=== PATIENT | female | born 1980 | race African-American/Black ===

== ENCOUNTER 2020-05-02 17:21 | Emergency (ER) | payer BC, OTHER ==
[2020-05-02 17:48] LABS: BACTERIA,URINE MODERTE /HPF; BILIRUBIN,URINE NEGATIVE (NEGATIVE); CLARITY,URINE CLEAR; COLOR,URINE YELLOW; GLUCOSE, URINE (UA) NEGATIVE (NEGATIVE); KETONES,URINE NEGATIVE (NEGATIVE); LEUKOCYTE ESTERASE ,URINE TRACE (NEGATIVE); NITRITE,URINE NEGATIVE (NEGATIVE); PH,URINE 6.5 (5-9); PROTEIN,URINE NEGATIVE (NEGATIVE); WBC,URINE 0-2 /HPF
--- NOTE | 2020-05-02 17:53 | ED GI ---
General Chief Complaint: Abdominal/GI Problems Stated Complaint: LT LOWER QUAD,ABD,LOWER BACK PAIN Nursing Triage Note: Has had LLQ/groin pain intermittently x 1 month. Has an appointment with Dr Keating next week for a suspected hernia. Has not had any imaging done. Pain has been progressively worse over the past 3 days. Has been taking ibuprofen for pain with no relief. Pain is currently rated at 5/10 and is dull. States she can feel a hard knot where her pain is. States her bowel movements have decreased in size and are much thinner for 6-7 months. Sepsis Screen: No Definite Risk History of Present Illness Date Seen by Provider: May 02, 2020 Time Seen by Provider: 17:40 Initial Comments 40-year-old female presents with lower left abdominal pain for the past one month. States pain has been gradually getting worse and feels like a fullness or "mass" in her lower abdomen and she is become increasingly concerned. Her PCP is Dr. Scott, FISH[facility].... He performed an ultrasound in the office and told her uterus was normal and referred her to GI doctor, her appointment is next week. Patient states she couldn't wait as her pain was getting worse. Denies any blood in her stool, but states that her stool has changed in size and is much smaller. Denies constipation or pain with bowel movements. Allergies and Home Medications Allergies Coded Allergies: codeine (Verified Adverse Reaction, Unknown, nausea, 05/02/20) Patient Home Medication List Home Medication List Reviewed: Yes Review of Systems Review of Systems Constitutional: no symptoms reported; No dizziness, No fever, No malaise, No we akness Respiratory: Denies Cough, Denies Shortness of Air Cardiovascular: Denies Chest Pain, Denies Edema, Denies Palpitations, Denies Syncope Gastrointestinal: Denies Abdomen Distended; Abdominal Pain; Denies Blood Streaked Stools, Denies Constipated, Denies Diarrhea, Denies Difficulty Swallowing, Denies Nausea, Denies Poor Appetite, Denies Poor Fluid Intake, Denies Rectal Bleeding, Denies Vomiting Genitourinary: Denies Burning, Denies Frequency, Denies Hematuria Musculoskeletal: back pain (states low back pain recently); No joint pain Skin: No change in color, No rash Past Mxzpebx-Zkphrx-Izmzqp Hx Past Med/Social Hx: Reviewed Nursing Past Med/Soc Hx Patient Social History Recent Foreign Travel: No Contact w/Someone Who Travel: No Recent Infectious Disease Expo: No Physical Exam Vital Signs Vital Signs - First Documented 05/02/20 17:30 Temp 36.1 Pulse 86 Resp 16 B/P (MAP) 127/79 (95) Pulse Ox 100 Capillary Refill : Less Than 3 Seconds Height/Weight/BMI Height: '" Weight: lbs. oz. kg; BMI Method: General Appearance: WD/WN, no apparent distress Respiratory: chest non-tender, lungs clear Cardiovascular: regular rate, rhythm, no edema, no JVD Gastrointestinal: normal bowel sounds, soft, no organomegaly, no pulsatile mass; No distended, No guarding, No rebound; tenderness (LLQ), hernia (small periumbilical); No mass, No hepatomegaly, No spleenomegaly Back: normal inspection, no CVA tenderness, no vertebral tenderness Neurologic/Psychiatric: alert, normal mood/affect Skin: normal color, warm/dry Progress/Results/Core Measures Results/Orders Lab Results Laboratory Tests Test 05/02/20 17:25 05/02/20 17:59 Range/Units Urine Color YELLOW Urine Clarity CLEAR Urine pH 6.5 5-9 Urine Specific [place] 1.020 1.016-1.022 Urine Protein NEGATIVE NEGATIVE Urine Glucose (UA) NEGATIVE NEGATIVE Urine Ketones NEGATIVE NEGATIVE Urine Nitrite NEGATIVE NEGATIVE Urine Bilirubin NEGATIVE NEGATIVE Urine Urobilinogen 0.2 < = 1.0 MG/DL Urine Leukocyte Esterase TRACE H NEGATIVE Urine RBC (Auto) 1+ H NEGATIVE Urine RBC 2-5 H /HPF Urine WBC 0-2 /HPF Urine Squamous Epithelial Cells 5-10 /HPF Urine Crystals NONE /LPF Urine Bacteria MODERTE /HPF Urine Casts NONE /LPF Urine Mucus NEGATIVE /LPF Urine Culture Indicated NO Urine Test NEGATIVE NEGATIVE White Blood Count 8.0 4.3-11.0 10^3/uL Red Blood Count 5.01 4.35-5.85 10^6/uL Hemoglobin 14.1 11.5-16.0 G/DL Hematocrit 43 35-52 % Mean Corpuscular Volume 85 80-99 FL Mean Corpuscular Hemoglobin 28 25-34 PG Mean Corpuscular Hemoglobin Concent 33 32-36 G/DL Red Cell Distribution Width 13.0 10.0-14.5 % Platelet Count 323 130-400 10^3/uL Mean Platelet Volume 10.4 7.4-10.4 FL Immature Granulocyte % (Auto) 0 % Neutrophils (%) (Auto) 72 42-75 % Lymphocytes (%) (Auto) 22 12-44 % Monocytes (%) (Auto) 5 0-12 % Eosinophils (%) (Auto) 1 0-10 % Basophils (%) (Auto) 1 0-10 % Neutrophils # (Auto) 5.8 1.8-7.8 X 10^3 Lymphocytes # (Auto) 1.8 1.0-4.0 X 10^3 Monocytes # (Auto) 0.4 0.0-1.0 X 10^3 Eosinophils # (Auto) 0.1 0.0-0.3 10^3/uL Basophils # (Auto) 0.0 0.0-0.1 10^3/uL Immature Granulocyte # (Auto) 0.0 0.0-0.1 10^3/uL My Orders Orders - FLORECITAVENJD SILVESTRE DO Urinalysis (05/02/20 17:33) Hcg,Qualitative Urine (05/02/20 17:33) Cbc With Automated Diff (05/02/20 17:47) Comprehensive Metabolic Panel (05/02/20 17:47) Ct Abdomen/Pelvis W (05/02/20 17:47) Iohexol Injection (Omnipaque 350 Mg/Ml 1 (05/02/20 18:00) Received Contrast (Hold Metformin- Contr (05/02/20 18:00) Sodium Chloride Flush (Catheter Flush Sy (05/02/20 18:00) Ns (Ivpb) (Sodium Chloride 0.9% Ivpb Bag (05/02/20 18:00) Medications Given in ED Current Medications Medications Dose Ordered Sig/Nima Route Start Time Stop Time Status Last Admin Dose Admin Iohexol 100 ml ONCE ONCE IV 05/02/20 18:00 05/02/20 18:01 DC 05/02/20 18:17 100 ML Sodium Chloride 100 ml ONCE ONCE IV 05/02/20 18:00 05/02/20 18:01 DC 05/02/20 18:18 80 ML Vital Signs/I&O 05/02/20 17:30 Temp 36.1 Pulse 86 Resp 16 B/P (MAP) 127/79 (95) Pulse Ox 100 Blood Pressure Mean: 95 Diagnostic Imaging Comments INDICATION: Low left abdominal pain for a month with possible hernia EXAMINATION: CT abdomen and pelvis with contrast 05/02/2020 FINDINGS: Visualized lung bases clear. The osseous structures unremarkable. The liver and spleen unremarkable. Gallbladder, pancreas and adrenal glands normal. There is a nonobstructive stone in the right kidney. Kidneys are otherwise unremarkable. Appendix is not seen but no inflammatory changes seen in the right lower quadrant. Remaining bowel loops appear unremarkable. There is a prominent cystic lesion in the anterior aspect of the upper pelvis left paracentral measuring 4.2 cm in greatest dimension. It may emanate from the left ovary but better characterized sonographically. An IUD is noted in the uterus. No free fluid seen in the pelvis with no free air appreciated. No significant herniation appreciated within the inguinal regions. IMPRESSION: 1. Large cystic lesion in the left anterior upper pelvis nonspecific but likely ovarian; pelvic sonography could further characterize, other findings as above. Dictated on workstation # [id number] Dict: 05/02/20 1825 Trans: 05/02/20 1837 [facility] [id number] Interpreted by: VARUN RHODES MD Electronically signed by: Departure Impression Primary Impression: Abdominal pain Qualified Codes: R10.32 - Left lower quadrant pain Additional Impression: Pelvic cyst Disposition: 01 HOME, SELF-CARE Condition: Stable Departure-Patient Inst. Decision time for Depature: 18:46 Referrals: GITA SCOTT DO (PCP/Family) Primary Care Physician Patient Instructions: Ovarian Cyst (DC) Add. Discharge Instructions: Follow up with your GI doctor as scheduled for next week. Call Dr Scott TOMORROW to notify him of your CT results All discharge instructions reviewed with patient and/or family. Voiced understanding. Work/School Note: Work Release Form Date Seen in the Emergency Department: May 02, 2020 Return to Work: May 03, 2020 Restrictions: No Restrictions JD GODOY DO May 02, 2020 17:53
[2020-05-02] MEDS ORDERED: IOHEXOL 350 MG/ML 100 ML (OMNIPAQUE 350) VIAL IV ONE (18:00)
[2020-05-02] MEDS ORDERED: HOLD METFORMIN - RECEIVED CONTRAST 20 ML VIAL IV SCH (18:00)
[2020-05-02] MEDS ORDERED: CATHETER FLUSH 10 ML SYR IV PRN (18:00)
[2020-05-02] MEDS ORDERED: NS 100 ML (IVPB) BAG IV ONE (18:00)
[2020-05-02 18:09] LABS: HEMATOCRIT 43 % (35-52); HEMOGLOBIN 14.1 G/DL (11.5-16.0); MEAN CORPUSCULAR HEMOGLOBIN 28 PG (25-34); MEAN CORPUSCULAR HGB CONC 33 G/DL (32-36); MEAN CORPUSCULAR VOLUME 85 FL (80-99)
[2020-05-02 18:10] LABS: BASOPHILS % (AUTO) 1 % (0-10); EOSINOPHILS # (AUTO) 0.1 10^3/uL (0.0-0.3); EOSINOPHILS % (AUTO) 1 % (0-10); LYMPHOCYTES # (AUTO) 1.8 X 10^3 (1.0-4.0); LYMPHOCYTES % (AUTO) 22 % (12-44); MEAN PLATELET VOLUME 10.4 FL (7.4-10.4); MONOCYTES # (AUTO) 0.4 X 10^3 (0.0-1.0); MONOCYTES % (AUTO) 5 % (0-12); NEUTROPHILS # (AUTO) 5.8 X 10^3 (1.8-7.8); NEUTROPHILS % (AUTO) 72 % (42-75); PLATELET COUNT 323 10^3/uL (130-400)
--- NOTE | 2020-05-02 18:38 | Diagnostic Imaging Report ---
PROCEDURE: CT abdomen and pelvis with contrast. TECHNIQUE: Multiple contiguous axial images were obtained through the abdomen and pelvis after administration of intravenous contrast. Auto Exposure Controls were utilized during the CT exam to meet ALARA standards for radiation dose reduction. All CT scans use one or more of the following dose optimizing techniques: automated exposure control, MA and/or KvP adjustment based on patient size and exam type or iterative reconstruction. INDICATION: Low left abdominal pain for a month with possible hernia EXAMINATION: CT abdomen and pelvis with contrast 05/02/2020 FINDINGS: Visualized lung bases clear. The osseous structures unremarkable. The liver and spleen unremarkable. Gallbladder, pancreas and adrenal glands normal. There is a nonobstructive stone in the right kidney. Kidneys are otherwise unremarkable. Appendix is not seen but no inflammatory changes seen in the right lower quadrant. Remaining bowel loops appear unremarkable. There is a prominent cystic lesion in the anterior aspect of the upper pelvis left paracentral measuring 4.2 cm in greatest dimension. It may emanate from the left ovary but better characterized sonographically. An IUD is noted in the uterus. No free fluid seen in the pelvis with no free air appreciated. No significant herniation appreciated within the inguinal regions. IMPRESSION: 1. Large cystic lesion in the left anterior upper pelvis nonspecific but likely ovarian; pelvic sonography could further characterize, other findings as above. Dictated by: Dictated on workstation # [id number]
[2020-05-02 18:42] LABS: ALANINE AMINOTRANSFERASE 16 U/L (0-55); ALBUMIN 4.6 GM/DL (3.2-4.5); ALKALINE PHOSPHATASE 107 U/L (40-136); BILIRUBIN,TOTAL 0.3 MG/DL (0.1-1.0); BUN/CREATININE RATIO 9; CALCIUM 9.5 MG/DL (8.5-10.1); CARBON DIOXIDE 24 MMOL/L (21-32); CHLORIDE 102 MMOL/L (98-107); CREATININE SERUM 0.95 MG/DL (0.60-1.30); GFR ESTIMATED > 60; GLUCOSE 107 MG/DL (70-105); POTASSIUM 3.7 MMOL/L (3.6-5.0); SODIUM 140 MMOL/L (135-145); TOTAL PROTEIN 7.8 GM/DL (6.4-8.2)
[2020-05-02] MEDS ORDERED: TRM50T PO (18:45)
[2020-05-02 18:53] VITALS: BP 113/69
== END 2020-05-02 18:56 | disposition home or self-care (01) ==
LOC: ER FS 17:23
DX: N94.89 Other specified conditions associated with female genital organs and menstrual cycle (principal); Z88.5 Allergy status to narcotic agent
CPT/HCPCS: 36415; 74177; 80053; 81000; 84703; 85025

== ENCOUNTER 2020-10-14 19:18 | Emergency (ER) | payer BC ==
[~2020-10-14 19:18] MED LIST: TRM50T PO
--- NOTE | 2020-10-14 19:39 | ED Abdominal Pain ---
General Stated Complaint: UPPER ABDOMINALPAIN/VOMOTING Source of Information: Patient NPO Since: [id number] History of Present Illness Date Seen by Provider: Oct 14, 2020 Time Seen by Provider: 19:26 Otherwise healthy 40-year-old female presenting with abdominal pain. Pain started about 1-1/2 hours ago while patient was at work. 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 Patient "toughed it out" at work and on her drive home has had to stop to vomit 4 times. Patient states the pain is epigastric and radiates to the right upper quadrant. Pain is sharp and severe in character. Nothing makes the pain better or worse. No fevers, chills, headache, chest pain, shortness of breath, rash, dysuria. Patient has an IUD and does not think she can be . No other complaints or injuries Allergies and Home Medications Allergies Coded Allergies: codeine (Verified Adverse Reaction, Unknown, nausea, 05/02/20) Home Medications Tramadol HCl 50 Mg Tablet, 50 MG PO Q6H PRN for PAIN Prescribed by: JD GODOY on 05/02/20 2676 Patient Home Medication List Home Medication List Reviewed: Yes Review of Systems Review of Systems Constitutional: No chills, No fever EENTM: No Symptoms Reported Respiratory: Denies Cough, Denies Shortness of Air Cardiovascular: Denies Chest Pain, Denies Lightheadedness Gastrointestinal: Abdominal Pain; Denies Constipated, Denies Diarrhea; Nausea, Vomiting Genitourinary: Denies Burning, Denies Discharge, Denies Frequency All Other Systems Reviewed Negative Unless Noted: Yes Past Jzzphqf-Iescfh-Lcajqz Hx Past Med/Social Hx: Reviewed Nursing Past Med/Soc Hx, Reviewed and Corrections made Patient Social History Alcohol Use: Denies Use Smoking Status: Never a Smoker 2nd Hand Smoke Exposure: No Recent Hopitalizations: No Seasonal Allergies Seasonal Allergies: No Past Medical History Surgeries: No Respiratory: No Cardiac: No Neurological: No Female Reproductive Disorders: Ovarian Cyst Genitourinary: No Gastrointestinal: No Musculoskeletal: No Endocrine: No HEENT: No Cancer: No Psychosocial: No Integumentary: No Family Medical History Reviewed Nursing Family Hx Physical Exam Vital Signs Vital Signs - First Documented 10/14/20 19:22 Pulse 85 Resp 18 B/P (MAP) 127/63 (84) Pulse Ox 100 O2 Delivery Room Air Capillary Refill : Height/Weight/BMI Height: '" Weight: lbs. oz. kg; BMI Method: General Appearance: WD/WN, mild distress HEENT: PERRL/EOMI, normal ENT inspection, pharynx normal Neck: non-tender, full range of motion, supple Respiratory: chest non-tender, lungs clear, normal breath sounds, no respiratory distress Cardiovascular: regular rate, rhythm, no murmur Gastrointestinal: normal bowel sounds, soft, rebound, tenderness (epigastric, ruq) Extremities: non-tender, normal inspection Back: normal inspection, no CVA tenderness Neurologic/Psychiatric: no motor/sensory deficits, alert, normal mood/affect, oriented x 3 Skin: normal color, warm/dry Lymphatic: no adenopathy Progress/Results/Core Measures Results/Orders Lab Results Laboratory Tests Test 10/14/20 19:30 10/14/20 19:51 Range/Units Urine Color YELLOW Urine Clarity SLIGHTLY CLOUDY Urine pH 6.0 5-9 Urine Specific [place] >=1.030 1.016-1.022 Urine Protein NEGATIVE NEGATIVE Urine Glucose (UA) NEGATIVE NEGATIVE Urine Ketones NEGATIVE NEGATIVE Urine Nitrite NEGATIVE NEGATIVE Urine Bilirubin NEGATIVE NEGATIVE Urine Urobilinogen 0.2 < = 1.0 MG/DL Urine Leukocyte Esterase TRACE H NEGATIVE Urine RBC (Auto) 2+ H NEGATIVE Urine RBC 10-25 H /HPF Urine WBC 25-50 H /HPF Urine Squamous Epithelial Cells 10-25 H /HPF Urine Crystals NONE /LPF Urine Bacteria LARGE H /HPF Urine Casts NONE /LPF Urine Mucus NEGATIVE /LPF Urine Culture Indicated YES Urine Test NEGATIVE NEGATIVE White Blood Count 7.7 4.3-11.0 10^3/uL Red Blood Count 4.83 4.35-5.85 10^6/uL Hemoglobin 13.4 11.5-16.0 G/DL Hematocrit 41 35-52 % Mean Corpuscular Volume 85 80-99 FL Mean Corpuscular Hemoglobin 28 25-34 PG Mean Corpuscular Hemoglobin Concent 33 32-36 G/DL Red Cell Distribution Width 12.8 10.0-14.5 % Platelet Count 276 130-400 10^3/uL Mean Platelet Volume 11.0 H 7.4-10.4 FL Immature Granulocyte % (Auto) 0 % Neutrophils (%) (Auto) 71 42-75 % Lymphocytes (%) (Auto) 22 12-44 % Monocytes (%) (Auto) 6 0-12 % Eosinophils (%) (Auto) 1 0-10 % Basophils (%) (Auto) 0 0-10 % Neutrophils # (Auto) 5.5 1.8-7.8 X 10^3 Lymphocytes # (Auto) 1.7 1.0-4.0 X 10^3 Monocytes # (Auto) 0.5 0.0-1.0 X 10^3 Eosinophils # (Auto) 0.1 0.0-0.3 10^3/uL Basophils # (Auto) 0.0 0.0-0.1 10^3/uL Immature Granulocyte # (Auto) 0.0 0.0-0.1 10^3/uL Sodium Level 136 135-145 MMOL/L Potassium Level 4.6 3.6-5.0 MMOL/L Chloride Level 105 98-107 MMOL/L Carbon Dioxide Level 19 L 21-32 MMOL/L Anion Gap 12 5-14 MMOL/L Blood Urea Nitrogen 17 7-18 MG/DL Creatinine 1.01 0.60-1.30 MG/DL Estimat Glomerular Filtration Rate > 60 BUN/Creatinine Ratio 17 Glucose Level 82 70-105 MG/DL Calcium Level 9.1 8.5-10.1 MG/DL Corrected Calcium 9.0 8.5-10.1 MG/DL Total Bilirubin 0.2 0.1-1.0 MG/DL Aspartate Amino Transf (AST/SGOT) 20 5-34 U/L Alanine Aminotransferase (ALT/SGPT) 18 0-55 U/L Alkaline Phosphatase 116 40-136 U/L Troponin I < 0.30 <0.30 NG/ML C-Reactive Protein 0.52 H <0.50 MG/DL Total Protein 7.6 6.4-8.2 GM/DL Albumin 4.1 3.2-4.5 GM/DL Amylase Level 68 25-125 U/L Lipase 39 8-78 U/L My Orders Orders - DAVEY BRUCE MD Cbc With Automated Diff (10/14/20 19:32) Comprehensive Metabolic Panel (10/14/20 19:32) Ed Iv/Invasive Line Start (10/14/20 19:32) Amylase (10/14/20 19:32) Lipase (10/14/20 19:32) Crp Fs (10/14/20 19:32) Hcg,Qualitative Urine (10/14/20 19:32) Protime With Inr (10/14/20 19:32) Troponin I Fs (10/14/20 19:32) Ct Abdomen/Pelvis Wo (10/14/20 19:32) Ondansetron Injection (Zofran Injectio (10/14/20 19:45) Lactated Ringers (Lr 1000 Ml Iv Solution (10/14/20 19:45) Ketorolac Injection (Toradol Injection) (10/14/20 19:45) Urinalysis (10/14/20 19:32) Urine Culture (10/14/20 19:30) Lactated Ringers (Lr 1000 Ml Iv Solution (10/14/20 20:15) Tamsulosin Capsule (Flomax Capsule) (10/14/20 20:18) Tamsulosin Capsule (Flomax Capsule) (10/14/20 20:45) Medications Given in ED Current Medications Medications Dose Ordered Sig/Nima Route Start Time Stop Time Status Last Admin Dose Admin Ondansetron HCl 4 mg ONCE ONCE IVP 10/14/20 19:45 10/14/20 19:46 DC 10/14/20 19:56 4 MG Vital Signs/I&O 10/14/20 19:22 Pulse 85 Resp 18 B/P (MAP) 127/63 (84) Pulse Ox 100 O2 Delivery Room Air Progress Progress Note : Progress Note 2009 - patient is pain free Otherwise healthy 40-year-old female presenting with abdominal pain. Differential includes small bowel obstruction, appendicitis, pancreatitis, cholelithiasis/cholecystitis, nephrolithiasis, ovarian cyst. CT scan negative for all of the above except right-sided nephrolithiasis which fits with patient's pain distribution. UA looks like contaminated specimen and patient without any signs of UTI so will defer any antibiotics at this time. Chemistries reassuring. We will send patient home with prescription for Zofran, Flomax, pain medication. Recommended following up with urology as stone is still within the kidney and may cause problems in the future. Discussed reasons to return to emergency room. Patient voiced understanding and agreement with plan of care. CT Results/Progress Notes CT ABDOMEN/PELVIS WO PROCEDURE: CT abdomen and pelvis without contrast. TECHNIQUE: Multiple contiguous axial images were obtained through the abdomen and pelvis without the use of intravenous contrast. Auto Exposure Controls were utilized during the CT exam to meet ALARA standards for radiation dose reduction. DATE: October 14, 2020. COMPARISON: None. INDICATION: 40-year-old female, right upper quadrant abdominal pain. FINDINGS: There are limitations for evaluation of the abdominal organs, neoplastic processes, abscess, and limited evaluation of the vasculature relating to the lack of intravenous contrast. The visualized portions of the lung bases are clear. The heart is not enlarged. There is no pericardial effusion. The liver is unremarkable in size and contour. The gallbladder is unremarkable. There is no identified intrahepatic or extrahepatic bile duct dilation. The main pancreatic duct is not grossly dilated. Limited noncontrast evaluation of the pancreatic parenchyma is unremarkable. The spleen is normal in size. There is a small accessory splenule. The adrenal glands are unremarkable. There is a nonobstructing right renal stone on axial image 39 measuring 5 mm in size. There is no hydronephrosis. There is no identified ureteral stone. Urinary bladder is collapsed and not well evaluated. There is an intrauterine contraceptive device in the midline uterus. The intestinal tract is not distended. There is no evidence of acute appendicitis. There is no free intraperitoneal air. There is minimal free pelvic fluid which is potentially physiologic. There is no identified drainable fluid collection. There is a fat-containing umbilical hernia. There is no identified abnormally enlarged lymph node in the abdomen or pelvis meeting CT size criteria for adenopathy. There is no identified acute bony abnormality. IMPRESSION: CT ABDOMEN AND PELVIS. 1. No identified acute abnormality in the abdomen or pelvis. 2. 5 mm nonobstructing right renal stone. 3. Intrauterine contraceptive device within the midline uterus. Departure Impression Primary Impression: Right nephrolithiasis Additional Impressions: Abdominal pain Qualified Codes: R10.9 - Unspecified abdominal pain Nausea & vomiting Qualified Codes: R11.2 - Nausea with vomiting, unspecified Disposition: 01 HOME, SELF-CARE Condition: Stable Departure-Patient Inst. Decision time for Depature: 20:37 Referrals: GITA BAHENA DO (PCP/Family) Primary Care Physician Patient Instructions: Kidney Stones (DC) DAVEY BRUCE MD Oct 14, 2020 19:39
[2020-10-14 19:44] LABS: BACTERIA,URINE LARGE /HPF; BILIRUBIN,URINE NEGATIVE (NEGATIVE); CLARITY,URINE SLIGHTLY CLOUDY; COLOR,URINE YELLOW; GLUCOSE, URINE (UA) NEGATIVE (NEGATIVE); KETONES,URINE NEGATIVE (NEGATIVE); LEUKOCYTE ESTERASE ,URINE TRACE (NEGATIVE); NITRITE,URINE NEGATIVE (NEGATIVE); PROTEIN,URINE NEGATIVE (NEGATIVE); WBC,URINE 25-50 /HPF
[2020-10-14] MEDS ORDERED: KETOROLAC 30 MG/ML VIAL IVP ONE (19:45)
[2020-10-14] MEDS ORDERED: LACTATED RINGERS 1,000 ML IV SCH ×2 (19:45→20:15)
[2020-10-14] MEDS ORDERED: ONDANSETRON 4 MG/2 ML (SDV) Z0FRAN IVP ONE (19:45)
--- NOTE | 2020-10-14 19:52 | Diagnostic Imaging Report ---
PROCEDURE: CT abdomen and pelvis without contrast. TECHNIQUE: Multiple contiguous axial images were obtained through the abdomen and pelvis without the use of intravenous contrast. Auto Exposure Controls were utilized during the CT exam to meet ALARA standards for radiation dose reduction. DATE: October 14, 2020. COMPARISON: None. INDICATION: 40-year-old female, right upper quadrant abdominal pain. FINDINGS: There are limitations for evaluation of the abdominal organs, neoplastic processes, abscess, and limited evaluation of the vasculature relating to the lack of intravenous contrast. The visualized portions of the lung bases are clear. The heart is not enlarged. There is no pericardial effusion. The liver is unremarkable in size and contour. The gallbladder is unremarkable. There is no identified intrahepatic or extrahepatic bile duct dilation. The main pancreatic duct is not grossly dilated. Limited noncontrast evaluation of the pancreatic parenchyma is unremarkable. The spleen is normal in size. There is a small accessory splenule. The adrenal glands are unremarkable. There is a nonobstructing right renal stone on axial image 39 measuring 5 mm in size. There is no hydronephrosis. There is no identified ureteral stone. Urinary bladder is collapsed and not well evaluated. There is an intrauterine contraceptive device in the midline uterus. The intestinal tract is not distended. There is no evidence of acute appendicitis. There is no free intraperitoneal air. There is minimal free pelvic fluid which is potentially physiologic. There is no identified drainable fluid collection. There is a fat-containing umbilical hernia. There is no identified abnormally enlarged lymph node in the abdomen or pelvis meeting CT size criteria for adenopathy. There is no identified acute bony abnormality. IMPRESSION: CT ABDOMEN AND PELVIS. 1. No identified acute abnormality in the abdomen or pelvis. 2. 5 mm nonobstructing right renal stone. 3. Intrauterine contraceptive device within the midline uterus. Dictated by: Dictated on workstation # [id number]
[2020-10-14 20:01] LABS: HEMATOCRIT 41 % (35-52); HEMOGLOBIN 13.4 G/DL (11.5-16.0); MEAN CORPUSCULAR HEMOGLOBIN 28 PG (25-34); MEAN CORPUSCULAR HGB CONC 33 G/DL (32-36); MEAN CORPUSCULAR VOLUME 85 FL (80-99); PLATELET COUNT 276 10^3/uL (130-400); WHITE BLOOD COUNT 7.7 10^3/uL (4.3-11.0)
[2020-10-14 20:02] LABS: BASOPHILS % (AUTO) 0 % (0-10); EOSINOPHILS # (AUTO) 0.1 10^3/uL (0.0-0.3); EOSINOPHILS % (AUTO) 1 % (0-10); LYMPHOCYTES # (AUTO) 1.7 X 10^3 (1.0-4.0); LYMPHOCYTES % (AUTO) 22 % (12-44); MONOCYTES # (AUTO) 0.5 X 10^3 (0.0-1.0); MONOCYTES % (AUTO) 6 % (0-12); NEUTROPHILS # (AUTO) 5.5 X 10^3 (1.8-7.8); NEUTROPHILS % (AUTO) 71 % (42-75)
[2020-10-14] MEDS ORDERED: TAMSULOSIN 0.4 MG (FLOMAX) CAP PO ONE (20:18)
[2020-10-14 20:24] LABS: ALANINE AMINOTRANSFERASE 18 U/L (0-55); ALBUMIN 4.1 GM/DL (3.2-4.5); ALKALINE PHOSPHATASE 116 U/L (40-136); BILIRUBIN,TOTAL 0.2 MG/DL (0.1-1.0); BUN/CREATININE RATIO 17; CALCIUM 9.1 MG/DL (8.5-10.1); CARBON DIOXIDE 19 MMOL/L (21-32); CHLORIDE 105 MMOL/L (98-107); CREATININE SERUM 1.01 MG/DL (0.60-1.30); GFR ESTIMATED > 60; GLUCOSE 82 MG/DL (70-105); POTASSIUM 4.6 MMOL/L (3.6-5.0); SODIUM 136 MMOL/L (135-145); TOTAL PROTEIN 7.6 GM/DL (6.4-8.2)
[2020-10-14 20:25] LABS: AMYLASE 68 U/L (25-125); LIPASE 39 U/L (8-78)
[2020-10-14] MEDS ORDERED: ACHD5005 PO (20:41)
[2020-10-14] MEDS ORDERED: ONDN4T PO (20:41)
[2020-10-14] MEDS ORDERED: TMSL.4C PO (20:41)
[2020-10-14] MEDS ORDERED: TAMSULOSIN 0.4 MG (FLOMAX) CAP PO SCH (20:45)
[2020-10-14 21:00] VITALS: BP 127/63
[2020-10-15] MEDS ORDERED: TAMSULOSIN 0.4 MG (FLOMAX) CAP PO SCH (18:00)
== END 2020-10-14 21:02 | disposition home or self-care (01) ==
LOC: EDUNIT# 19:18 → ER FS 19:21
DX: N20.0 Calculus of kidney (principal); Z88.5 Allergy status to narcotic agent
CPT/HCPCS: 36415; 74176; 80053; 81000; 82150; 83690; 84484; 84703; 85025; 86141; 87088

== ENCOUNTER → 2021-09-04 | Outpatient (CLI) | payer OTHER ==
[~2021-09-04] MED LIST changes: +ACHD5005 PO; +ONDN4T PO; +TMSL.4C PO
--- NOTE | 2021-09-04 10:00 | Diagnostic Imaging Report ---
PROCEDURE: CT abdomen and pelvis without contrast. TECHNIQUE: Multiple contiguous axial images were obtained through the abdomen and pelvis without the use of intravenous contrast. Auto Exposure Controls were utilized during the CT exam to meet ALARA standards for radiation dose reduction. INDICATION: Right flank pain. COMPARISON: 10/14/2020 FINDINGS: Included portions lung bases are clear. CT ABDOMEN: Punctate nonobstructive right renal calculus is seen. No renal calculi identified on the left. No ureteral calculi are seen on either side. Additionally, there is no hydroureteronephrosis or other evidence of obstruction. No focal renal masses are identified on this noncontrast exam. Fat-containing supraumbilical hernia is identified. Ostium measures 1.3 cm in diameter. Small bowel loops are nondistended. Normal appendix is identified. The adrenal glands, spleen, pancreas, and liver have an unremarkable noncontrast CT appearance. There is no loculated fluid collection, free fluid or free air within the abdomen. No abnormal mesenteric or retrocardiac adenopathy is seen. Osseous structures show no acute abnormalities. CT PELVIS: Urinary bladder is unopacified. No calculi are seen within urinary bladder. There is no loculated fluid collection, free fluid or free air. No abnormal adenopathy is identified. Indwelling intrauterine contraceptive device is identified and appears to be in appropriate position. Osseous structures show no acute abnormalities. IMPRESSION: 1. Punctate nonobstructive right renal calculus. 2. No ureteral calculi, hydroureteronephrosis, or other evidence of obstruction. Dictated by: Dictated on workstation # [id number]
== END ==
LOC: RAD FS 09:27
PROVIDERS: ATTEND Nurse Practitioner Family
DX: N20.0 Calculus of kidney (principal)
CPT/HCPCS: 74176

== ENCOUNTER 2021-09-23 00:08 | Emergency (ER) | payer OTHER ==
[~2021-09-23] VITALS: Ht 157.4 cm; Wt 98.5 kg
--- NOTE | 2021-09-23 00:27 | ED Abdominal Pain ---
General Chief Complaint: Abdominal/GI Problems Stated Complaint: TIGHT UPPER QUAD PAIN History of Present Illness Date Seen by Provider: Sep 23, 2021 Time Seen by Provider: 00:21 Initial Comments 41 yr F is here with c/o right upper quadrant and right flank pain for the past couple of days, with a pain level of 6-7 over 10. Patient had 3 episodes of vomiting yesterday. Patient had seen her PCP on September 04 and imaging had shown punctate calculi at that time. Patient has a known stone that was diagno sed 2 years ago and since then she has had on and off pain in the right flank, but she does not think the stone had ever passed. Denies chest pain, palpitations, short of breath, dysuria, fever, diarrhea. Allergies and Home Medications Allergies Coded Allergies: codeine (Verified Adverse Reaction, Unknown, nausea, 05/02/20) Patient Home Medication List Home Medication List Reviewed: Yes No Active Prescriptions or Reported Meds Review of Systems Review of Systems Constitutional: no symptoms reported EENTM: No Symptoms Reported Respiratory: No Symptoms Reported Cardiovascular: No Symptoms Reported Gastrointestinal: Abdominal Pain, Nausea, Vomiting Genitourinary: Flank Pain Musculoskeletal: no symptoms reported Skin: no symptoms reported Psychiatric/Neurological: No Symptoms Reported Endocrine: No Symptoms Reported Hematologic/Lymphatic: No Symptoms Reported Past Nwjvqol-Zelqpw-Ytxfhf Hx Seasonal Allergies Seasonal Allergies: No Past Medical History Surgeries: No Respiratory: No Cardiac: No Neurological: No Female Reproductive Disorders: Ovarian Cyst Genitourinary: No Gastrointestinal: No Musculoskeletal: No Endocrine: No HEENT: No Cancer: No Psychosocial: No Integumentary: No Physical Exam Vital Signs Vital Signs - First Documented 09/23/21 00:15 Temp 36.3 Pulse 77 Resp 16 B/P (MAP) 132/74 (93) Pulse Ox 100 O2 Delivery Room Air Capillary Refill : Height/Weight/BMI Height: '" Weight: lbs. oz. kg; BMI Method: General Appearance: WD/WN, no apparent distress HEENT: PERRL/EOMI Neck: full range of motion Respiratory: chest non-tender, lungs clear, normal breath sounds Cardiovascular: regular rate, rhythm Gastrointestinal: normal bowel sounds, soft, no organomegaly, no pulsatile mass, tenderness (RUQ and right flank tenderness +) Extremities: normal range of motion Back: CVA tenderness (R) Neurologic/Psychiatric: alert, normal mood/affect, oriented x 3 Skin: normal color Progress/Results/Core Measures Results/Orders Lab Results Laboratory Tests Test 09/23/21 01:00 09/23/21 01:10 Range/Units White Blood Count 7.9 4.3-11.0 10^3/uL Red Blood Count 4.68 3.80-5.11 10^6/uL Hemoglobin 12.9 11.5-16.0 g/dL Hematocrit 39 35-52 % Mean Corpuscular Volume 84 80-99 fL Mean Corpuscular Hemoglobin 28 25-34 pg Mean Corpuscular Hemoglobin Concent 33 32-36 g/dL Red Cell Distribution Width 13.2 10.0-14.5 % Platelet Count 309 130-400 10^3/uL Mean Platelet Volume 10.2 9.0-12.2 fL Immature Granulocyte % (Auto) 0 % Neutrophils (%) (Auto) 61 42-75 % Lymphocytes (%) (Auto) 30 12-44 % Monocytes (%) (Auto) 7 0-12 % Eosinophils (%) (Auto) 2 0-10 % Basophils (%) (Auto) 1 0-10 % Neutrophils # (Auto) 4.8 1.8-7.8 10^3/uL Lymphocytes # (Auto) 2.4 1.0-4.0 10^3/uL Monocytes # (Auto) 0.5 0.0-1.0 10^3/uL Eosinophils # (Auto) 0.1 0.0-0.3 10^3/uL Basophils # (Auto) 0.0 0.0-0.1 10^3/uL Immature Granulocyte # (Auto) 0.0 0.0-0.1 10^3/uL Sodium Level 137 135-145 MMOL/L Potassium Level 3.8 3.6-5.0 MMOL/L Chloride Level 103 98-107 MMOL/L Carbon Dioxide Level 22 21-32 MMOL/L Anion Gap 12 5-14 MMOL/L Blood Urea Nitrogen 14 7-18 MG/DL Creatinine 0.85 0.60-1.30 MG/DL Estimat Glomerular Filtration Rate 88 BUN/Creatinine Ratio 16 Glucose Level 95 70-105 MG/DL Calcium Level 9.3 8.5-10.1 MG/DL Corrected Calcium 9.1 8.5-10.1 MG/DL Total Bilirubin 0.3 0.1-1.0 MG/DL Aspartate Amino Transf (AST/SGOT) 14 5-34 U/L Alanine Aminotransferase (ALT/SGPT) 17 0-55 U/L Alkaline Phosphatase 117 40-136 U/L Total Protein 7.4 6.4-8.2 GM/DL Albumin 4.2 3.2-4.5 GM/DL Lipase 31 8-78 U/L Urine Color YELLOW Urine Clarity CLEAR Urine pH 6.0 5-9 Urine Specific Webster 1.025 H 1.016-1.022 Urine Protein NEGATIVE NEGATIVE Urine Glucose (UA) NEGATIVE NEGATIVE Urine Ketones NEGATIVE NEGATIVE Urine Nitrite NEGATIVE NEGATIVE Urine Bilirubin NEGATIVE NEGATIVE Urine Urobilinogen 0.2 < = 1.0 MG/DL Urine Leukocyte Esterase NEGATIVE NEGATIVE Urine RBC (Auto) 1+ H NEGATIVE Urine RBC 2-5 H /HPF Urine WBC RARE /HPF Urine Squamous Epithelial Cells 2-5 /HPF Urine Crystals NONE /LPF Urine Bacteria FEW H /HPF Urine Casts NONE /LPF Urine Mucus MODERATE H /LPF Urine Culture Indicated NO My Orders Orders - GILLIAN ANTHONY MD Comprehensive Metabolic Panel (09/23/21 00:30) Lipase (09/23/21 00:30) Ua Culture If Indicated (09/23/21 00:30) Ed Iv/Invasive Line Start (09/23/21 00:30) Ct Abdomen/Pelvis W (09/23/21 00:30) Cbc With Automated Diff (09/23/21 00:33) Urine Bedside (09/23/21 00:34) Iohexol Injection (Omnipaque 350 Mg/Ml 1 (09/23/21 00:45) Received Contrast (Hold Metformin- Contr (09/23/21 00:45) Sodium Chloride Flush (Catheter Flush Sy (09/23/21 00:45) Ns (Ivpb) (Sodium Chloride 0.9% Ivpb Bag (09/23/21 00:45) Ed Iv/Invasive Line Start (09/23/21 00:56) Ns Iv 1000 Ml (Sodium Chloride 0.9%) (09/23/21 01:00) Ketorolac Injection (Toradol Injection) (09/23/21 02:29) Medications Given in ED Current Medications Medications Dose Ordered Sig/Nima Route Start Time Stop Time Status Last Admin Dose Admin Iohexol 150 ml ONCE ONCE IV 09/23/21 00:45 09/23/21 00:46 DC 09/23/21 01:24 100 ML Sodium Chloride 10 ml NEEDED PRN IV 09/23/21 00:45 09/23/21 01:25 10 ML Sodium Chloride 100 ml ONCE ONCE IV 09/23/21 00:45 09/23/21 00:46 DC 09/23/21 01:25 100 ML Vital Signs/I&O 09/23/21 00:15 Temp 36.3 Pulse 77 Resp 16 B/P (MAP) 132/74 (93) Pulse Ox 100 O2 Delivery Room Air Progress Progress Note : Progress Note 1. RIGHT NEPHROLITHIASIS: - CT ABD: Non-obstructing 5mm stone - Labs unremarkable - UA RBC+ - NS IVF/ Toradol 15mg iv STAT - Pt has an Urology appointment with Dr. Starkey on October 03. Advised to call office to check if there is an appointment sooner. - Prescriptions for Naproxen prn moderate pain, Zofran, Tramadol severe pain - Strainer given -The patient was seen in the ED, and treated appropriately to presentation at a specific point in time. Patient is informed that there is a possibility that disease and illness can evolve and change in acuity rapidly or slowly after patient is discharged from the ER. Precautionary advice given to the patient for immediate return to ER if symptoms worsen or do not resolve, and to seek emergency care sooner rather than later. Pt also advised on the importance of PCP follow up and compliance with management and follow up plan. Pt verbally expressed understanding. Diagnostic Imaging Diagonstic Imaging: CT Plain Films/CT/US/NM/MRI: abdomen Comments Non-obstructing 5mm stone in right kidney Departure Impression Primary Impression: Right nephrolithiasis Disposition: 01 HOME, SELF-CARE Condition: Stable Departure-Patient Inst. Referrals: GITA BAHENA DO (PCP/Family) Primary Care Physician Patient Instructions: Kidney Stone Diet, How to Strain Your Urine, Kidney Stone, Adult ED, Renal Colic Add. Discharge Instructions: Advised to call Urology office to check if there is an appointment sooner. F/u with PCP - Prescriptions for Naproxen prn moderate pain, Zofran prn nausea/ vomiting -The patient was seen in the ED, and treated appropriately to presentation at a specific point in time. Patient is informed that there is a possibility that disease and illness can evolve and change in acuity rapidly or slowly after patient is discharged from the ER. Precautionary advice given to the patient for immediate return to ER if symptoms worsen or do not resolve, and to seek emergency care sooner rather than later. Pt also advised on the importance of PCP follow up and compliance with management and follow up plan. Pt verbally expressed understanding. All discharge instructions reviewed with patient and/or family. Voiced understanding. Scripts Naproxen Sodium (Anaprox Ds) 550 Mg Tablet 550 MG PO BID PRN for PAIN-MODERATE (5-7), #20 TAB Prov: GILLIAN ANTHONY MD 09/23/21 Ondansetron (Ondansetron Odt) 4 Mg Tab.rapdis 4 MG PO Q8H PRN for NAUSEA/VOMITING, #10 TAB Prov: GILLIAN ANTHONY MD 09/23/21 GILLIAN ANTHONY MD Sep 23, 2021 00:27
[2021-09-23] MEDS ORDERED: HOLD METFORMIN - RECEIVED CONTRAST 20 ML VIAL IV SCH (00:45)
[2021-09-23] MEDS ORDERED: CATHETER FLUSH 10 ML SYR IV PRN (00:45)
[2021-09-23] MEDS ORDERED: IOHEXOL 350 MG/ML 150 ML (OMNIPAQUE 350) VIAL IV ONE (00:45)
[2021-09-23] MEDS ORDERED: NS 100 ML (IVPB) BAG IV ONE (00:45)
[2021-09-23] MEDS ORDERED: NS IV 1000 ML 1,000 ML IV SCH (01:00)
[2021-09-23 01:18] LABS: BASOPHILS % (AUTO) 1 % (0-10); EOSINOPHILS # (AUTO) 0.1 10^3/uL (0.0-0.3); EOSINOPHILS % (AUTO) 2 % (0-10); HEMATOCRIT 39 % (35-52); HEMOGLOBIN 12.9 g/dL (11.5-16.0); LYMPHOCYTES # (AUTO) 2.4 10^3/uL (1.0-4.0); LYMPHOCYTES % (AUTO) 30 % (12-44); MEAN CORPUSCULAR HEMOGLOBIN 28 pg (25-34); MEAN CORPUSCULAR HGB CONC 33 g/dL (32-36); MEAN CORPUSCULAR VOLUME 84 fL (80-99); MEAN PLATELET VOLUME 10.2 fL (9.0-12.2); MONOCYTES # (AUTO) 0.5 10^3/uL (0.0-1.0); MONOCYTES % (AUTO) 7 % (0-12); NEUTROPHILS # (AUTO) 4.8 10^3/uL (1.8-7.8); NEUTROPHILS % (AUTO) 61 % (42-75); PLATELET COUNT 309 10^3/uL (130-400); WHITE BLOOD COUNT 7.9 10^3/uL (4.3-11.0)
[2021-09-23 01:20] LABS: BILIRUBIN,URINE NEGATIVE (NEGATIVE); CLARITY,URINE CLEAR; COLOR,URINE YELLOW; GLUCOSE, URINE (UA) NEGATIVE (NEGATIVE); KETONES,URINE NEGATIVE (NEGATIVE); LEUKOCYTE ESTERASE ,URINE NEGATIVE (NEGATIVE); NITRITE,URINE NEGATIVE (NEGATIVE); PROTEIN,URINE NEGATIVE (NEGATIVE)
[2021-09-23 01:27] LABS: BACTERIA,URINE FEW /HPF; WBC,URINE RARE /HPF
[2021-09-23 01:44] LABS: ALBUMIN 4.2 GM/DL (3.2-4.5); BILIRUBIN,TOTAL 0.3 MG/DL (0.1-1.0); CALCIUM 9.3 MG/DL (8.5-10.1); CREATININE SERUM 0.85 MG/DL (0.60-1.30); POTASSIUM 3.8 MMOL/L (3.6-5.0); TOTAL PROTEIN 7.4 GM/DL (6.4-8.2)
[2021-09-23] MEDS ORDERED: KETOROLAC 30 MG/ML VIAL IVP STA (02:29)
[2021-09-23] MEDS ORDERED: NAPR-1070 PO (02:43)
[2021-09-23] MEDS ORDERED: OXYC1TAB11 PO (02:43)
[2021-09-23] MEDS ORDERED: ONDA4TAB11 PO (02:43)
[2021-09-23] MEDS ORDERED: TRM50T PO (02:46)
[2021-09-23 03:00] VITALS: BP 122/61
[2021-09-23] MEDS ORDERED: TMSL.4C PO (03:06)
[2021-09-23] MEDS ORDERED: TAMSULOSIN 0.4 MG (FLOMAX) CAP PO STA (03:10)
[2021-09-23] MEDS ORDERED: TAMSULOSIN 0.4 MG (FLOMAX) CAP PO ONE (03:12)
--- NOTE | 2021-09-23 06:47 | Diagnostic Imaging Report ---
PROCEDURE: CT abdomen and pelvis with contrast. TECHNIQUE: Multiple contiguous axial images were obtained through the abdomen and pelvis after administration of intravenous contrast. Auto Exposure Controls were utilized during the CT exam to meet ALARA standards for radiation dose reduction. All CT scans use one or more of the following dose optimizing techniques: automated exposure control, MA and/or KvP adjustment based on patient size and exam type or iterative reconstruction. DATE: September 23, 2021. COMPARISON: CT abdomen pelvis September 04, 2021. INDICATION: 41-year-old female, right upper quadrant and right-sided flank pain. FINDINGS: There is minimal atelectasis in the right lower lobe. The heart is not enlarged. There is no pericardial effusion. The liver is unremarkable in size and contour. There is no identified liver lesion. The main, right, and left portal veins are patent. The gallbladder is unremarkable. There is no intrahepatic or extrahepatic bile duct dilation. The main pancreatic duct is not abnormally dilated. Unremarkable appearance of the pancreatic parenchyma. The spleen is normal in size. The adrenal glands are unremarkable. There is a nonobstructing right renal stone on axial image 36 which measures 5.5 mm in size. The urinary collecting systems are not distended. There is no identified ureteral stone. The urinary bladder is underdistended and grossly unremarkable in appearance. There is an intrauterine contraceptive device within the midline uterus which is likely in the endometrial cavity. There is trace amount of free pelvic fluid which is potentially physiologic. The intestinal tract is not distended. There is no free intraperitoneal air. There is no drainable fluid collection. There is no identified abnormally enlarged lymph node in the abdomen or pelvis which meets CT size criteria for adenopathy. There is no identified acute bony abnormality. IMPRESSION: CT ABDOMEN AND PELVIS. 1. 5.5 mm nonobstructing right renal stone. 2. No ureteral stone or hydronephrosis. 3. No otherwise identified acute abnormality in the abdomen or pelvis. 4. Intrauterine contraceptive device within the midline uterus, likely in the endometrial cavity. 5. Trace amount of free pelvic fluid which is most likely physiologic. Agree with the provided preliminary report. Dictated by: Dictated on workstation # [id number]
== END 2021-09-23 03:00 | disposition home or self-care (01) ==
LOC: EDUNIT# 00:08 → ER FS 00:11
DX: N20.0 Calculus of kidney (principal)
CPT/HCPCS: 36415; 74177; 80053; 81000; 83690; 84703; 85025; Q9967

== ENCOUNTER → 2021-10-09 | Outpatient (CLI) | payer OTHER ==
[~2021-10-09] MED LIST changes: +NAPR-1070 PO; +ONDA4TAB11 PO; +OXYC1TAB11 PO
--- NOTE | 2021-10-09 17:11 | Diagnostic Imaging Report ---
INDICATION: Right flank pain. EXAMINATION: AP images of the abdomen were obtained. FINDINGS: There is an approximately 0.6 cm in diameter calcification projected over the right renal pelvis. Otherwise, note is made of intrauterine device in appropriate position. No other abdominal calcification is seen. Overall bowel gas pattern is unremarkable. IMPRESSION: 0.6 cm calculus projects over the right renal pelvis without other acute abnormality. Dictated by: Dictated on workstation # [id number]
== END ==
LOC: RAD 16:48
PROVIDERS: ATTEND Urology
DX: N20.0 Calculus of kidney (principal)
CPT/HCPCS: 74018

== ENCOUNTER 2021-10-16 05:35 | Outpatient (CLI) | payer OTHER ==
[~2021-10-16] VITALS: Ht 162 cm; Wt 90.8 kg
[2021-10-18] MEDS ORDERED: TRM50T PO (12:53)
== END 2021-10-18 13:01 | disposition home or self-care (01) ==
LOC: PREOP 05:35
PROVIDERS: ATTEND Urology
DX: Z01.818 Encounter for other preprocedural examination (principal)

== ENCOUNTER 2021-10-22 06:27 | Day surgery (SDC) | payer OTHER ==
[~2021-10-22] VITALS: Ht 162 cm; Wt 90.8 kg
[2021-10-22] VITALS (10 sets, daily range): BP systolic 102–141; BP diastolic 57–76
[2021-10-22] MEDS ORDERED: cefTRIAXone 1 GM PRE-MIX 50 ML IV ONE ×2 (06:44→06:45)
[2021-10-22] MEDS ORDERED: LACTATED RINGERS 1,000 ML IV PRN (06:45)
--- NOTE | 2021-10-22 07:25 | Diagnostic Imaging Report ---
INDICATION: Preop. COMPARISON: 10/09/2021. FINDINGS: Single view OF the abdomen demonstrates probable stone in the right renal collecting system. There is increasing constipation obscuring view. There is AN IUD within the pelvis. IMPRESSION: Suspect right renal calculus. Dictated by: Dictated on workstation # [id number]
--- NOTE | 2021-10-22 07:30 | Progress Note-Pre Operative ---
Pre-Operative Progress Note H&P Reviewed The H&P was reviewed, patient examined and no changes noted. Date Seen by Provider: Oct 22, 2021 Time Seen by Provider: 07:30 Date H&P Reviewed: Oct 22, 2021 Time H&P Reviewed: 07:30 Pre-Operative Diagnosis: RT RENAL STONE NICANOR RAY MD Oct 22, 2021 07:30
[2021-10-22] MEDS ORDERED: ONDANSETRON 4 MG/2 ML (SDV) Z0FRAN ONE (09:14)
[2021-10-22] MEDS ORDERED: proPOfol 200 MG/20 ML (DIPRIVAN) VIAL IV ONE (09:14)
[2021-10-22] MEDS ORDERED: KETOROLAC 30 MG/ML VIAL ONE (09:14)
[2021-10-22] MEDS ORDERED: fentaNYL INJ 100 MCG/2 ML AMP ONE (09:14)
[2021-10-22] MEDS ORDERED: MIDAZOLAM 2 MG/2 ML (VERSED) VIAL ONE (09:14)
[2021-10-22] MEDS ORDERED: FUROSEMIDE 40 MG/4 ML INJ (LASIX) ONE (09:14)
[2021-10-22] MEDS ORDERED: LIDOCAINE PF 2% 5 ML (XYLOCAINE) VIAL ONE (09:14)
--- NOTE | 2021-10-22 09:37 | Progress Note-Post Operative ---
Post-Operative Progess Note Surgeon (s)/Compensation Administrator (s) Surgeon NICANOR RAY MD Compensation Administrator: NONE Pre-Operative Diagnosis RT RENAL STONE Post-Operative Diagnosis SAME Procedure & Operative Findings Date of Procedure 10/22/21 Procedure Performed/Findings RT ESWL Anesthesia Type GENERAL Estimated Blood Loss Estimated blood loss (mL): NONE Specimens/Packing Specimens Removed NONE Packing: NONE NICANOR RAY MD Oct 22, 2021 09:37
--- NOTE | 2021-10-22 09:39 | Discharge Inst-Urology ---
Discharge Inst-Urology Reconcile Patient Problems Problems Reviewed?: Yes Final Diagnosis RT RENAL STONE Patient Instructions/Follow Up Plan/Assessment/Instructions Please make appointment to been seen in office in 2 weeks. KUB prior to it KUB on way home Post ESWL instructions Increase oral fluids for 48 hours and then as needed. Diet and Activity as tolerated. If questions or concerns contact your physician Or seek help at emergency department. NICANOR RAY MD Oct 22, 2021 09:39
[2021-10-22] MEDS ORDERED: SEVOFLURANE (ULTANE) 15 ML INHAL SOLN ONE (10:04)
--- NOTE | 2021-10-22 10:20 | Anesthesia-General Post-Op ---
General Patient Condition Mental Status/LOC: Same as Preop Cardiovascular: Satisfactory Nausea/Vomiting: Absent Respiratory: Satisfactory Pain: Controlled Complications: Absent Post Op Complications Complications None Follow Up Care/Instructions Patient Instructions None needed. Anesthesia/Patient Condition Patient Condition Patient is doing well, no complaints, stable vital signs, no apparent adverse anesthesia problems. No complications reported per nursing. HARSHA MARTINEZ CRNA Oct 22, 2021 10:20
[2021-10-22] MEDS ORDERED: KETO10TA PO (11:18)
[2021-10-22] MEDS ORDERED: TMSL.4C PO (11:18)
[2021-10-22] MEDS ORDERED: NITR-65 PO (11:18)
--- NOTE | 2021-10-22 12:10 | Diagnostic Imaging Report ---
INDICATION: Status post ESWL. COMPARISON: Earlier this same day. FINDINGS: Two supine radiographic views of the abdomen were obtained. No definite abnormal extraosseous calcifications are seen. Indwelling intrauterine contraceptive device is noted. Small bowel loops are nondistended. There is no large collection of free intraperitoneal air. Osseous structures show no acute deformities. IMPRESSION: 1. No definite unexpected extraosseous calcifications. 2. Nonobstructed small bowel gas pattern. Dictated by: Dictated on workstation # [id number]
--- NOTE | 2021-10-22 13:22 | OPERATIVE REPORT ---
DATE OF SERVICE: 10/22/2021 PREOPERATIVE DIAGNOSIS: Right renal stone. POSTOPERATIVE DIAGNOSIS: Right renal stone. OPERATION PERFORMED: Right ESWL. SURGEON: Micky Ray MD ANESTHESIA: General. COMPLICATIONS: None. DESCRIPTION OF PROCEDURE: Under satisfactory general anesthesia, the patient in supine position on the ESWL table, the right renal stone was localized. Shocks were delivered at kV of 6, 2500 shocks completely fragmented the stone that was not visualized anymore. The patient received 40 mg of Lasix and 30 mg of Toradol IV at the end of the procedure. She tolerated the procedure and anesthesia well and was sent to recovery room in stable condition. Job ID: [id number] DocumentID: [id number] Dictated Date: 10/22/2021 10:01:01 Registered Mail Clerk Date: 10/22/2021 13:21:57 Dictated By: MICKY RAY MD
== END 2021-10-22 12:10 | disposition home or self-care (01) ==
LOC: SDC 06:27
PROVIDERS: ATTEND Urology
DX: N20.0 Calculus of kidney (principal); E66.9 Obesity, unspecified; Z68.35 Body mass index [BMI] 35.0-35.9, adult
CPT/HCPCS: 74018; 84703; 87081